=== PATIENT | male | born 1990 | race Caucasian/White ===

== ENCOUNTER 2023-08-21 13:37 | Emergency (ER) | payer SELFPAY ==
[2023-08-21 13:39] VITALS: RESP 16; TEMP 36.8; O2SAT 98; BMI 219685.7
--- NOTE | 2023-08-21 14:06 | HMH.EDGENADL ---
Discharge Plan Disposition Patient Disposition: Home, Self-Care Chief Complaint: Ear Referrals Follow up/Referrals: Provider,Referral, [Primary Care Provider] - See instructions Activity Restrictions/Add. Instructions Additional Instructions/Restrictions: Place drops in ear 4 times daily. Call your family doctor to establish care for this visit to the emergency department and schedule follow-up within 48 hours to ensure improvement. If you have any worsening of your condition or any other concerning signs or symptoms, return to the emergency department or your primary care doctor for further evaluation. Clinical Impressions Clinical Impression: Otitis externa Qualifiers: Otitis externa type: swimmer's ear Chronicity: acute Laterality: right Qualified Code(s): H60.331 - Swimmer's ear, right ear Discharge ED Provider: Renzo Mayers General Adult HPI General Chief complaint: Ear Stated complaint: Rt ear pain Time Seen by Provider: 08/21/23 13:49 Mode of Arrival: Ambulatory Source of Information: Patient Limitations: No Limitations Description of Symptoms (Recalled from ER Triage Doc. by RN): pain in rt ear began hurting last night, worsening pain. pain rating 7/10. History of Present Illness HPI narrative: 32-year-old male history of numerous ear infections presenting with ear pain. Patient states that started last night, 08/20. Progressively worse. Denies drainage, hearing loss, but made worse when laying on that side. No fevers or chills, nausea or vomiting, neurologic deficits. Ran out of eardrops, so came to the ER out of concern for otitis externa. Related Data Allergies Allergy/AdvReac Type Severity Reaction Status Date / Time No Known Allergies Allergy Unverified 11/14/17 15:28 [facility] Disclaimer: The information contained in this section may have been updated after the patient was seen, as this information can be updated by other users. Social History Smoking Status: Current every day smoker alcohol intake: never current occupational status: unemployed Travel in the last 8 weeks: None ROS Obtained: Yes All systems reviewed & no additional complaints except as documented Physical Exam General General appearance: alert, in no apparent distress and other ( ) Head Head exam: atraumatic and normocephalic Eye Eye exam: Present normal appearance, PERRL and EOMI ENT ENT exam: Present mucous membranes moist, TM's normal bilaterally and other (External auditory canal on the right side red, swollen. No evidence of granulation tissue. Tenderness to palpation) Neck Neck exam: Present normal inspection, full ROM and trachea midline Respiratory Respiratory exam: Absent respiratory distress, wheezes, stridor, accessory muscle use or prolonged expiratory phase Cardiovascular Cardiovascular exam: Present regular rate and normal rhythm Abdominal Exam Abdominal exam: Present soft; Absent distention, tenderness, guarding, rebound, rigidity or normal bowel sounds Extremities Exam Extremities exam: Absent edema Neurological Exam Neurological exam: Present alert, oriented X3, CN II-XII intact and normal gait; Absent motor sensory deficit Skin Skin exam: Present warm and dry; Absent diaphoresis or erythema Medical Decision Making Medical Records Medical records reviewed: Yes I reviewed the patient's medical records. Mejia Inquiry Pt receiving controlled substance: No Mejia was queried for this patient: No Vital Signs: 08/21/23 13:39 Temperature 98.3 F Temperature Source Oral Respiratory Rate 16 02 Sat by Pulse Oximetry 98 Oxygen Delivery Method Room Air Medical Decision Narrative: 32-year-old male history of numerous ear infections presenting with ear pain. Patient states that started last night, 08/20. Progressively worse. Denies drainage, hearing loss, but made worse when laying on that side. No fevers or chills, nausea or vomiting, neurologic deficits. Ran out of eardrops, so
[2023-08-21 14:20] VITALS: BP 129/70; PULSE 109; RESP 16; TEMP 36.8; O2SAT 98
== END 2023-08-21 14:21 | disposition home or self-care (01) ==
PROVIDERS: Emergency Provider Emergency Medicine
DX: H60.331 Swimmer's ear, right ear (principal); F17.210 Nicotine dependence, cigarettes, uncomplicated
CPT/HCPCS: 99283

== ENCOUNTER 2024-03-29 09:24 | Emergency (ER) | payer MEDICAID, SELFPAY ==
[2024-03-29] VITALS (7 sets, daily range): BP systolic 134–151; BP diastolic 89–110; PULSE 79–94; RESP 17–18; TEMP 36.9; O2SAT 98–100; BMI 21.2
--- NOTE | 2024-03-29 09:42 | XR_ITS ---
FINAL REPORT CLINICAL HISTORY: swelling, pain, poss infection FINDINGS: Three views show no evidence of acute displaced fracture or dislocation of the visualized bony architecture. The joint spaces appear normal. There is soft tissue swelling of the 3rd digit. No radiopaque foreign body is identified. There is no evidence of bony destruction. Postoperative bony defect is seen in the distal ulna. IMPRESSION: Soft tissue swelling of the 3rd digit without radiopaque foreign body or bone destruction. Reviewed, Interpreted and Dictated by Arturo Cornelius MD Transcribed by Tameka Rodriguez Authenticated and [facility]
--- NOTE | 2024-03-29 10:20 | CT_ITS ---
FINAL REPORT TECHNIQUE: Axial imaging of the left hand was obtained after the intravenous administration of contrast. Reformatted images were also obtained and reviewed. This study was performed with techniques to keep radiation doses as low as reasonably achievable (ALARA). Individualized dose reduction techniques using automated exposure control or adjustment of mA and/or kV according to the patient's size were employed. CLINICAL HISTORY: middle finger swelling, c/f abscess vs ftsn FINDINGS: There is soft tissue swelling and stranding of the left third digit. There is no bony destruction to indicate osteomyelitis. There is mild enlargement of the flexor tendon. There is no obvious abscess. No soft tissue gas is seen. IMPRESSION: Nonspecific soft tissue swelling which could be seen with cellulitis. No obvious abscess. Enlargement of the flexor tendon which could be seen with tenosynovitis. Reviewed, Interpreted and Dictated by Arturo Cornelius MD Transcribed by Kinjal Cerrato Authenticated and [facility]
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
[2024-03-29] MEDS: PIPERACILLIN/TAZO 3.375 GM in 0.9 % SODIUM CHLORIDE 50 ML IV (10:51)
[2024-03-29] MEDS: MORPHINE 4MG/ML SYRINGE 4 MG IV (10:51)
[2024-03-29 10:53] LABS: Basophils # 0.1 K/mm3 (0-0.2); Basophils % 0.5 % (0.1-2.0); Eosinophils % 0.3 % (0.1-12.0); Hematocrit 41.5 % (42.0-52.0); Hemoglobin 13.9 g/dL (14.1-18.0); Lymphocytes # 1.3 K/mm3 (0.7-4.5); Lymphocytes % 12.4 % (10-50); Mean Corpuscular HGB Conc 33.5 g/dL (31.8-35.4); Mean Corpuscular Hemoglobin 28.4 pg (27.0-31.2); Mean Corpuscular Volume 84.8 fl (80-94); Mean Platelet Volume 7.7 fl (7.4-10.4); Monocytes # 0.6 K/mm3 (0.1-1.0); Monocytes % 5.3 % (1.7-9.3); Neutrophils # 8.7 K/mm3 (1.8-7.8); Neutrophils % 81.6 % (37.0-80.0); Platelet Count 239 K/mm3 (142-424); Red Blood Count 4.89 M/mm3 (4.60-6.20); Red Cell Distribution Width 14.4 % (11.5-17.5); White Blood Count 10.6 K/mm3 (4.8-10.8)
[2024-03-29 11:00] LABS: Alanine Aminotransferase 21 U/L (12-78); Albumin Level 4.3 g/dl (3.5-5.0); Albumin/Globulin Ratio 1.7 (1.1-1.8); Alkaline Phosphatase 128 U/L (38-126); Anion Gap 7.6 mEq/L (5-15); Aspartate Amino Transferase 30 U/L (17-59); Bilirubin,Total 1.4 mg/dl (0.2-1.3); Blood Urea Nitrogen 15 mg/dl (9-20); Carbon Dioxide 29 mmol/L (22.0-30.0); Chloride 100 mmol/L (98-107); Creatinine Clearance Estimated 137 mL/min (50-200); Estimated Glomerular Filt Rate 132 ml/min (>60); GFR (African American) 159 ML/MIN (>60); Globulin 2.5 g/dL (1.3-3.2); Glucose 118 mg/dl (74-100); Potassium 3.6 mmoL/L (3.5-5.1); Sodium 133 mmol/L (136-145); Total Protein,Serum 6.8 g/dl (6.3-8.2)
[2024-03-29] MEDS: SODIUM CHLORIDE 0.9% 10ML SYR (RAD ONLY) 10 ML IV (11:05)
[2024-03-29] MEDS: IOPAMIDOL-370 (76%);100ML BOTTLE 75 ML IV (11:05)
[2024-03-29 11:06] LABS: C-Reactive Protein 31.4 mg/L (0-4)
[2024-03-29] MEDS: VANCOMYCIN/WATER FOR INJ (PEG) 1.25 GM/250 ML PIGGYBACK IV (11:35)
[2024-03-29 11:39] LABS: Erythrocyte Sedimentation Rate 12 mm/hr (0-15)
--- NOTE | 2024-03-29 12:35 | PC.NURSE ---
Called [facility] per Dr López to speak to hand surgery about this pt. [facility] advised they would call back as soon as they got a hold of them
--- NOTE | 2024-03-29 13:46 | PC.NURSE ---
Dr. López at bedside for u/s
--- NOTE | 2024-03-29 13:46 | PC.NURSE ---
[facility] Called back to state Dr. Mack has accepted pt to [facility]
== END 2024-03-29 14:07 | disposition home or self-care (01) ==
PROVIDERS: Emergency Provider Student in an Organized Health Care Education/Training Program; PCP Physician Assistant
DX: M65.842 Other synovitis and tenosynovitis, left hand (principal); E87.1 Hypo-osmolality and hyponatremia; M79.645 Pain in left finger(s); F17.210 Nicotine dependence, cigarettes, uncomplicated
CPT/HCPCS: 73130; 73201; 80053; 85025; 85651; 86140; 87040; 96365; 96366; 96367; 96375; 99285; J2543; Q9967